=== PATIENT | female | born 1985 | race Caucasian/White ===

== ENCOUNTER → 2022-09-12 | Outpatient (CLI) | payer OTHER, BC ==
[2022-09-12 10:05] LABS: ALT 18 U/L (4-34); AST 24 U/L (14-36); African American GFR (CKD) >90 (>60 ml/min/1.73 sqM); Albumin 4.5 g/dL (3.5-5.0); Albumin/Globulin Ratio 1.3; Alkaline Phosphatase 70 U/L (38-126); Anion Gap 9 mmol/L; Blood Urea Nitrogen 14 mg/dL (7-17); Calcium 9.3 mg/dL (8.4-10.2); Carbon Dioxide 26 mmol/L (22-30); Chloride 106 mmol/L (98-107); Globulin 3.6 g/dL; Glucose 96 mg/dL (74-99); Magnesium 2.1 mg/dL (1.6-2.3); Non-African American GFR(CKD) >90 (>60 ml/min/1.73 sqM); Potassium 4.3 mmol/L (3.5-5.1); Sodium 141 mmol/L (137-145); Total Bilirubin 0.6 mg/dL (0.2-1.3); Total Protein 8.1 g/dL (6.3-8.2)
[2022-09-12 12:18] LABS: Glucose 2 Hour 84 mg/dL
[2022-09-12 13:39] LABS: Basophils # (A) 0.02 X 10*3/uL (0.00-0.10); Basophils % (A) 0.4 %; HCT 41.9 % (37.2-46.3); HGB 13.2 d/dL (12.0-15.0); Lymphocytes # (A) 1.63 X 10*3/uL (0.90-5.00); Lymphocytes % (A) 32.7 %; MCH 28.6 pg (27.0-32.0); MCHC 31.5 d/dL (32.0-37.0); MCV 90.7 FL (80.0-97.0); Mean Platelet Volume 10.3 FL (9.5-12.2); Monocytes # (A) 0.35 X 10*3/uL (0.20-1.00); NRBC Per 100 WBC 0 X 10*3/uL (0.00-0.01); Neutrophils # (A) 2.76 X 10*3/uL (1.80-7.70); Neutrophils % (A) 55.5 %; Platelet Count 256 X 10*3/uL (140-440); RBC 4.62 X 10*6/uL (4.10-5.20); RDW 12.7 % (11.5-14.5); WBC 4.98 X 10*3/uL (4.50-10.00)
[2022-09-13 09:54] LABS: Chol/HDL Ratio 2.36 Ratio; LDL Cholesterol,Calculated 87.5 mg/dL (0.0-131.0); VLDL Calculation 8.84 mg/dL (5.00-40.00)
== END | disposition home or self-care (01) ==
LOC: LABWHC1 08:32
PROVIDERS: ATTEND Internal Medicine
DX: O24.414 Gestational diabetes mellitus in pregnancy, insulin controlled (principal); G43.909 Migraine, unspecified, not intractable, without status migrainosus; Z3A.00 Weeks of gestation of pregnancy not specified
CPT/HCPCS: 36415; 80053; 80061; 82607; 82746; 82947; 82950; 83036; 83735; 84443; 85025

== ENCOUNTER → 2023-08-26 | Outpatient (CLI) | payer OTHER ==
[2023-08-26 16:03] LABS: Basophils # (A) 0.02 X 10*3/uL (0.00-0.10); Basophils % (A) 0.4 %; Eosinophils # (A) 0.18 X 10*3/uL (0.04-0.35); Eosinophils % (A) 3.2 %; HCT 43.8 % (37.2-46.3); HGB 14.2 g/dL (12.0-15.0); Lymphocytes # (A) 1.65 X 10*3/uL (0.90-5.00); Lymphocytes % (A) 29.5 %; MCHC 32.4 g/dL (32.0-37.0); MCV 89.4 FL (80.0-97.0); Mean Platelet Volume 9.8 FL (9.5-12.2); Monocytes # (A) 0.31 X 10*3/uL (0.20-1.00); Monocytes % (A) 5.5 %; NRBC Per 100 WBC 0 X 10*3/uL (0.00-0.01); Neutrophils % (A) 60.9 %; Platelet Count 234 X 10*3/uL (140-440); RDW 12.3 % (11.5-14.5); WBC 5.59 X 10*3/uL (4.50-10.00)
[2023-08-26 16:11] LABS: ALT 13 U/L (8-44); AST 18 U/L (13-35); Albumin 4.6 g/dL (3.8-4.9); Albumin/Globulin Ratio 1.48 Ratio (1.60-3.17); Alkaline Phosphatase 73 U/L (41-126); Blood Urea Nitrogen 13.8 mg/dL (9.0-27.0); Calcium 9.7 mg/dL (8.7-10.3); Carbon Dioxide 23.6 mmol/L (21.6-31.8); Chloride 103 mmol/L (96-109); Globulin 3.1 g/dL (1.6-3.3); Glucose 91 mg/dL (70-110); Potassium 4.5 mmol/L (3.5-5.5); Sodium 138 mmol/L (135-145); Total Bilirubin 0.5 mg/dL (0.3-1.2); Total Protein 7.7 g/dL (6.2-8.2)
[2023-08-26 16:22] LABS: Chol/HDL Ratio 2.17 Ratio; LDL Cholesterol,Calculated 76.6 mg/dL (0.0-131.0); VLDL Calculation 10.16 mg/dL (5.00-40.00)
== END | disposition home or self-care (01) ==
LOC: LABWHC1 10:23
PROVIDERS: ATTEND Internal Medicine
DX: Z00.00 Encounter for general adult medical examination without abnormal findings (principal); Z11.59 Encounter for screening for other viral diseases; E28.2 Polycystic ovarian syndrome; K13.0 Diseases of lips
CPT/HCPCS: 36415; 80053; 80061; 82607; 82746; 83036; 84443; 85025; 86803